=== PATIENT | female | born 1945 | race Caucasian/White ===

== ENCOUNTER 2017-10-31 16:54 | Inpatient (IN) | payer MEDICARE ==
[2017-10-31 16:54] VITALS: BMI 23.0
[2017-10-31 18:39] LABS: ALB/GLOB RATIO 1.3 (1.0-2.1); BILIRUBIN,TOTAL 0.4 mg/dL (0.2-1.3); CALCIUM 8.7 mg/dl (8.6-10.4); POTASSIUM 4.1 mmol/L (3.6-5.2)
[2017-10-31 18:50] LABS: TROPONIN I 0.019 ng/mL (0.00-0.120)
[2017-10-31 19:27] LABS: BASO % 0.6 % (0.0-2.0); EOS # 0.1 K/uL (0.0-0.7); EOS % 2.3 % (0.0-4.0); HEMATOCRIT 30.4 % (34.0-47.0); LYMPH # 1.7 K/uL (1.0-4.3); LYMPH % 29.9 % (20.0-40.0); MEAN CELL VOLUME 94.1 fL (81.0-99.0); MEAN CORPUSCULAR HEMOGLOBIN 32.6 pg (27.0-31.0); MEAN CORPUSCULAR HGB CONC 34.6 g/dL (33.0-37.0); MONO # 0.4 K/uL (0.0-0.8); MONO % 6.8 % (0.0-10.0); NRBC % 0.1 % (0.0-2.0); RED CELL DISTRIBUTION WIDTH 13.3 % (11.5-14.5); WHITE BLOOD COUNT 5.7 K/uL (4.8-10.8)
--- NOTE | 2017-10-31 19:39 | CT ---
EXAM: CT Head Without Intravenous Contrast CLINICAL HISTORY: 72 years old, female; Injury or trauma; Fall; Initial encounter; Blunt trauma (contusions or hematomas); Consciousness not specified; Additional info: R/O ich TECHNIQUE: Axial computed tomography images of the head/brain without intravenous contrast. All CT scans at this facility use one or more dose reduction techniques, viz.: automated exposure control; ma/kV adjustment per patient size (including targeted exams where dose is matched to indication; i.e. head); or iterative reconstruction technique. Coronal and sagittal reformatted images were created and reviewed. COMPARISON: No relevant prior studies available. FINDINGS: Brain: [id number] atrophy. No intracranial hemorrhage. No mass. Few scattered foci of decreased attenuation within periventricular/subcortical white matter. Chronic lacunar infarct within LEFT basal ganglia. No edema. Ventricles: No hydrocephalus. Bones/joints: No acute fracture. Soft tissues: Minimal scalp swelling. Vasculature: Atherosclerotic disease of intracranial arteries. Sinuses: Scattered minimal mucosal thickening. Mastoid air cells: No mastoid effusion. Orbits: Unremarkable as visualized. IMPRESSION: 1. No intracranial hemorrhage. 2. Nonspecific white matter changes. 3. Incidental/non-acute findings are described above.
--- NOTE | 2017-10-31 21:19 | C.PDOC ---
History Of Present Illness 72 year old female presents to the ED c/o falling and hitting her head " hard" today, she states feeling dizzy and lightheaded before falling. Patient reports she has had multiple falls the past 6-8 weeks. While at the ED patient is eating normally, with no physical complaints. Patient reports having a stress test done at Dr. Vázquez office but states he does not know the results.Patient denies dysuria, hematuria, bloody stool, cough, abdominal pain, diarrhea. - HPI Chief Complaint (Nursing): Trauma History Per: Patient History/Exam Limitations: no limitations Onset/Duration Of Symptoms: Days Injury Occurred (Timing): Just Before Arrival Severity: None Associated Symptoms: Dizziness, Dazed Recent travel outside of the [place]: No Additional History Per: Patient - Fall Fall:Prior To Injury: [place] Lightheaded Past Medical History Reviewed: Historical Data, Nursing Documentation, Vital Signs Vital Signs: Last Vital Signs Temp 98.0 F 10/31/17 21:49 Pulse 82 10/31/17 21:49 Resp 20 10/31/17 21:49 BP 130/64 10/31/17 21:49 Pulse Ox 99 10/31/17 21:49 - Medical History PMH: Anemia, Diabetes, HTN, Hypercholesterolemia Surgical History: Pacemaker - [facility] Procedures CENTRAL VENOUS CATHETER PLACEMENT WITH GUIDANCE (05/10/13) CLOSED ENDOSCOPIC BIOPSY OF LARGE INTESTINE (06/09/13) FLUOROSCOPY OF LEFT HEART USING LOW OSMOLAR CONTRAST (09/26/15) FLUOROSCOPY OF SINGLE CORONARY ARTERY USING L OSM CONTRAST (09/26/15) INSERT INTERCOSTAL CATH (07/01/13) LAPAROSCOP LYSIS-PERITONEAL ADHES (06/09/13) MEASURE OF CARDIAC SAMPL & PRESSURE, L HEART, PERC APPROACH (09/26/15) OTHER ENDOSCOPY OF SM INTEST (06/09/13) PACKED CELL TRANSFUSION (07/01/13) PERCUTANEOUS ABDOMINAL DRAINAGE (06/09/13) THORACENTESIS (07/01/13) VENOUS CATHETERIZATION NEC (07/01/13) Family History: States: No Known Family Hx - Social History Hx Tobacco Use: No Hx Alcohol Use: No Hx Substance Use: No - Immunization History Hx Influenza Vaccination: Yes Hx Pneumococcal Vaccination: Yes Review Of Systems Constitutional: Negative for: Fever, Chills Cardiovascular: Negative for: Chest Pain, Palpitations Respiratory: Negative for: Cough, Shortness of Breath Gastrointestinal: Negative for: Nausea, Vomiting, Abdominal Pain Skin: Negative for: Rash Neurological: Positive for: Dizziness. Negative for: Weakness, Numbness Physical Exam - Physical Exam Appears: Non-toxic, No Acute Distress Skin: Normal Color, Warm, Dry Head: Atraumatic, Normacephalic Eye(s): bilateral: Normal Inspection Ear(s): Bilateral: Normal Nose: No Discharge, No Deformity Oral Mucosa: Moist Neck: Normal ROM, Supple Chest: Symmetrical Cardiovascular: Rhythm Regular, No Murmur Respiratory: Normal Breath Sounds, No Rales, No Rhonchi, No Wheezing Gastrointestinal/Abdominal: Soft, No Tenderness, No Guarding, No Rebound Back: No CVA Tenderness Extremity: Normal ROM, No Pedal Edema, No Deformity, No Swelling Neurological/Psych: Oriented x3, Normal Speech, Normal Cognition Gait: Steady ED Course And Treatment - Laboratory Results Result Diagrams: 10/31/17 18:24 10/31/17 18:24 ECG: Interpreted By Me, Viewed By Me ECG Rhythm: V Paced (atrial sensed) Rate From EC O2 Sat by Pulse Oximetry: 99 (On RA) Pulse Ox Interpretation: Normal - Radiology CXR: Interpreted by Me, Viewed By Me - CT Scan/US Head CT Other Rad Studies (CT/US): Interpreted By Me, Read By Radiologist, Radiology Report Reviewed CT/US Interpretation: IMPRESSION: 1. No intracranial hemorrhage. 2. Nonspecific white matter changes. 3. Incidental/non-acute findings are described above. Medical Decision Making Medical Decision Making: Plan: * EKG ordered * CT head ordered * Blood work ordered * UA ordered Spoke with Dr. Vivek Verdugo, and pt will be admitted to telemetry. Disposition - Disposition Disposition: HOSPITALIZED Disposition Time: 19:30 Condition: STABLE - Clinical Impression Clinical Impression: Near syncope - Scribe Statement The provider has reviewed the documentation as recorded by the Scribe Rodger Tello All medical record entries made by the Scribe were at my direction and personally dictated by me. I have reviewed the chart and agree that the record accurately reflects my personal performance of the history, physical exam, medical decision making, and the department course for this patient. I have also personally directed, reviewed, and agree with the discharge instructions and disposition.
[2017-11-01] MEDS ORDERED: Pneumococcal 23-Valent Vaccine IM ONE (01:23)
[2017-11-01 02:42] LABS: TROPONIN I 0.019 ng/mL (0.00-0.120)
[2017-11-01 07:05] LABS: RBC URINE < 1 /hpf (0-3); URINE BILIRUBIN NEGATIVE (NEGATIVE); URINE BLOOD NEGATIVE (NEGATIVE); URINE COLOR Yellow (YELLOW); URINE GLUCOSE (UA) 3+ mg/dL (Normal); URINE KETONE NEGATIVE (NEGATIVE); URINE LEUKOCYTE ESTERASE NEG Leu/uL (Negative); URINE PROTEIN NEGATIVE (NEGATIVE); WBC URINE 1 /hpf (0-5)
--- NOTE | 2017-11-01 08:56 | RAD ---
HISTORY: r/o infiltrate COMPARISON: Chest x-ray performed 09/25/15 TECHNIQUE: Chest, one view. FINDINGS: Examination limited by habitus and hypoinflation. LUNGS: Mild biapical pleural thickening. No focal consolidation. Please note that chest x-ray has limited sensitivity for the detection of pulmonary masses. PLEURA: No significant pleural effusion identified. No definite pneumothorax . CARDIOVASCULAR: Dual lead left-sided pacemaker. Heart size appears within normal limits. Atherosclerotic calcifications of the aorta. OSSEOUS STRUCTURES: Osseous demineralization. Degenerative changes. VISUALIZED UPPER ABDOMEN: Unremarkable. OTHER FINDINGS: None. IMPRESSION: No acute findings. See above
[2017-11-01] MEDS: Enoxaparin 40 mg Syringe SC SCH (09:34)
[2017-11-01 11:44] LABS: TROPONIN I 0.013 ng/mL (0.00-0.120)
--- NOTE | 2017-11-01 12:47 | CT ---
PROCEDURE: CT HEAD WITHOUT CONTRAST. HISTORY: Syncope/ mulltiple falls COMPARISON: None available. TECHNIQUE: Axial computed tomography images were obtained through the head/brain without intravenous contrast. Radiation dose: Total exam DLP = 992.27 mGy-cm. This CT exam was performed using one or more of the following dose reduction techniques: Automated exposure control, adjustment of the mA and/or kV according to patient size, and/or use of iterative reconstruction technique. FINDINGS: HEMORRHAGE: No intracranial hemorrhage. BRAIN: The mckeon-white matter differentiation is well preserved. There is no mass effect or definitive edema pattern appreciate including the cortex. There is expansion of the ventriculosulcal and cisternal spaces however in a pattern most compatible with diffuse cerebral atrophy. No suspicious extra-axial fluid collection is identified in the midline brain anatomy appears grossly nonfocal as imaged. A few chronic lacunes are again seen at the left basal ganglia and likely at the left thalamus as well. No suspicious interval findings are appreciated in the interval. VENTRICLES: Unremarkable. No hydrocephalus. CALVARIUM: Unremarkable. PARANASAL SINUSES: Unremarkable as visualized. No significant inflammatory changes. MASTOID AIR CELLS: Unremarkable as visualized. No inflammatory changes. OTHER FINDINGS: None. IMPRESSION: Age related neuro degenerative changes are identified without acute intracranial findings as discussed above. Chronic lacunes left basal ganglia and likely left thalamus. Follow up CT or MRI are available if clinically warranted.
--- NOTE | 2017-11-01 13:02 | CT ---
PROCEDURE: CT Lumbar Spine without contrast HISTORY: Syncope/ multiple falls COMPARISON: None. TECHNIQUE: Axial computed tomography images were obtained of the lumbar spine without the use of intravenous contrast. Coronal and sagittal reformatted images were created and reviewed. Radiation dose: Total exam DLP = 428.67 mGy-cm. This CT exam was performed using one or more of the following dose reduction techniques: Automated exposure control, adjustment of the mA and/or kV according to patient size, and/or use of iterative reconstruction technique. FINDINGS: VERTEBRAE: The lumbar lordotic curvature is entered the by a minimal grade [address] 12/01/2000 for T12 is posterior to L1 minimally in the same appearance is seen with L1 relative to to L2. This appears to be on a facet joint degenerative arthropathy basis as no spondylolysis is encountered in this examination. Diffuse osteopenia suggests osteoporosis. No destructive bony lesion is encountered. Marked disc desiccation and vacuum disc changes are appreciated diffusely with vacuum disc changes also affecting the facet joint is at the left L3-4 level and right L4-5 level. Prevertebral paraspinal soft is remarkable only for vascular calcifications. DISCS/SPINAL CANAL/NEURAL FORAMINA: L1-2: Lower recess stenosis symmetric, caused by facet arthropathy combining with disc osteophyte complex. Moderate bilateral neural foraminal stenoses are encountered. Lesser lateral recess stenosis is seen at T12-L1 symmetrically by the same mechanism. L2-3: A degenerative central canal stenosis appears mild caused by facet arthropathy combined with a disc osteophyte complex with moderate bilateral neural foraminal stenosis resulting as well. L3-4: Nearly identical to L2-3, central stenosis caused by combination of gross facet arthropathy and disc osteophyte complex with moderate bilateral neural foraminal stenosis also noted. L4-5: A severe degenerative central stenosis caused by gross facet arthropathy and at large disc osteophyte complex. Severe bilateral neuroforaminal stenosis is also noted here. L5-S1: Moderate central stenosis caused by a large disc osteophyte complex and prominent facet arthropathy. Moderate to severe bilateral foraminal stenosis also noted. OTHER FINDINGS: None. IMPRESSION: Multilevel spinal stenosis appears degenerative seen worst at L4-5 where severe central stenosis results from disc osteophyte changes combined with gross facet arthropathy. Severe bilateral neural foraminal stenosis also seen at this level bilaterally. Similar but lesser stenosis is seen by similar mechanism at L2-3 through L3-4 and L5-S1. Further care tissue provided by MRI if clinically warranted. Minimal grade 1 degenerative spondylolistheses T12-L1 and L1-2.
--- NOTE | 2017-11-01 17:13 | CP.PCM.HP ---
History of Present Illness - History of Present Illness History of Present Illness: 72-year-old female with PMHanemia, DM, HTN and hypercholesterolemia presents to the ER after a fall. Patient fell down and hit her head very hard today. C/Odizziness and lightheadedness just before falling. Patient also admits that she has multiple episodes of falling the last 6-8 weeks. No C/Ovomiting, fever, cough, tinnitus, ringing in the ears, weakness of any extremities, loss of consciousness, blurring of vision. Present on Admission - Present on Admission Any Indicators Present on Admission: No Past Patient History - Infectious Disease Hx of Infectious Diseases: None - Past Medical History & Family History Past Medical History?: Yes - Past Social History Smoking Status: Never Smoked - CARDIAC Hx Hypercholesterolemia: Yes Hx Hypertension: Yes Hx Pacemaker: Yes - PULMONARY Hx Respiratory Disorders: No - NEUROLOGICAL Hx Neurological Disorder: No - HEENT Hx HEENT Problems: No - RENAL Hx Chronic Kidney Disease: No - ENDOCRINE/METABOLIC Hx Endocrine Disorders: Yes Hx Diabetes Mellitus Type 2: Yes - HEMATOLOGICAL/ONCOLOGICAL Hx Anemia: Yes - INTEGUMENTARY Hx Dermatological Problems: No - MUSCULOSKELETAL/RHEUMATOLOGICAL Hx Musculoskeletal Disorders: No Hx Falls: Yes - GASTROINTESTINAL Hx Gastrointestinal Disorders: No - GENITOURINARY/GYNECOLOGICAL Hx Genitourinary Disorders: No - PSYCHIATRIC Hx Substance Use: No - SURGICAL HISTORY Hx Surgeries: Yes Hx Cardiac Catheterization: Yes (4 STENTS PER PATIENT) - ANESTHESIA Hx Anesthesia: Yes Hx Anesthesia Reactions: No Hx Malignant Hyperthermia: No Meds Allergies/Adverse Reactions: Allergies Allergy/AdvReac Type Severity Reaction Status Date / Time No Known Allergies Allergy Verified 10/31/17 17:32 Physical Exam - Constitutional Appears: Well - Head Exam Head Exam: ATRAUMATIC, NORMAL INSPECTION, NORMOCEPHALIC - Eye Exam Eye Exam: EOMI, Normal appearance, PERRL Pupil Exam: NORMAL ACCOMODATION, PERRL - ENT Exam ENT Exam: Mucous Membranes Moist, Normal Exam - Neck Exam Neck exam: Positive for: Normal Inspection - Respiratory Exam Respiratory Exam: Decreased Breath Sounds - Cardiovascular Exam Cardiovascular Exam: REGULAR RHYTHM, +S1, +S2 - GI/Abdominal Exam GI & Abdominal Exam: Diminished Bowel Sounds, Soft - Rectal Exam Rectal Exam: Deferred Results - Vital Signs Recent Vital Signs: Last Vital Signs Temp 98.4 F 11/01/17 15:28 Pulse 87 11/01/17 15:28 Resp 20 11/01/17 15:28 BP 144/78 11/01/17 15:28 Pulse Ox 98 11/01/17 15:28 - Labs Result Diagrams: 11/02/17 11:34 11/02/17 11:34 Labs: Laboratory Results - last 24 hr 10/31/17 10/31/17 10/31/17 17:56 18:24 18:24 WBC 5.7 RBC 3.23 L Hgb 10.5 L Hct 30.4 L MCV 94.1 D MCH 32.6 H MCHC 34.6 RDW 13.3 Plt Count 245 MPV 8.0 Neut % (Auto) 60.4 Lymph % (Auto) 29.9 Thayer % (Auto) 6.8 Eos % (Auto) 2.3 Baso % (Auto) 0.6 Neut # 3.4 Lymph # 1.7 Thayer # 0.4 Eos # 0.1 Baso # 0.0 PT 11.2 INR 1.0 APTT 32 Sodium Potassium Chloride Carbon Dioxide Anion Gap BUN Creatinine Est GFR ( Amer) Est GFR (Non-Af Amer) POC Glucose (mg/dL) Random Glucose Calcium Total Bilirubin AST ALT Alkaline Phosphatase Total Creatine Kinase CK-MB (Mass) Troponin I Total Protein Albumin Globulin Albumin/Globulin Ratio Urine Color Yellow Urine Clarity Clear Urine pH 5.0 Ur Specific Bandy 1.020 Urine Protein Negative Urine Glucose (UA) 3+ H Urine Ketones Negative Urine Blood Negative Urine Nitrate Negative Urine Bilirubin Negative Urine Urobilinogen 2.0 H Ur Leukocyte Esterase Neg Urine WBC (Auto) 1 Urine RBC (Auto) < 1 Ur Squamous Epith Cells 1 10/31/17 11/01/17 11/01/17 18:24 02:09 05:59 WBC RBC Hgb Hct MCV MCH MCHC RDW Plt Count MPV Neut % (Auto) Lymph % (Auto) Thayer % (Auto) Eos % (Auto) Baso % (Auto) Neut # Lymph # Thayer # Eos # Baso # PT INR APTT Sodium 138 Potassium 4.1 Chloride 105 Carbon Dioxide 23 Anion Gap 14 BUN 24 H Creatinine 1.3 H Est GFR ( Amer) 48 Est GFR (Non-Af Amer) 40 POC Glucose (mg/dL) 226 H Random Glucose 298 H Calcium 8.7 Total Bilirubin 0.4 AST 20 ALT 37 Alkaline Phosphatase 125 Total Creatine Kinase 68 CK-MB (Mass) 0.81 Troponin I 0.0190 0.0190 Total Protein 7.0 Albumin 4.0 Globulin 3.0 Albumin/Globulin Ratio 1.3 Urine Color Urine Clarity Urine pH Ur Specific [place] Urine Protein Urine Glucose (UA) Urine Ketones Urine Blood Urine Nitrate Urine Bilirubin Urine Urobilinogen Ur Leukocyte Esterase Urine WBC (Auto) Urine RBC (Auto) Ur Squamous Epith Cells 11/01/17 11/01/17 11:01 11:11 WBC RBC Hgb Hct MCV MCH MCHC RDW Plt Count MPV Neut % (Auto) Lymph % (Auto) Thayer % (Auto) Eos % (Auto) Baso % (Auto) Neut # Lymph # Thayer # Eos # Baso # PT INR APTT Sodium Potassium Chloride Carbon Dioxide Anion Gap BUN Creatinine Est GFR ( Amer) Est GFR (Non-Af Amer) POC Glucose (mg/dL) 331 H Random Glucose Calcium Total Bilirubin AST ALT Alkaline Phosphatase Total Creatine Kinase 87 CK-MB (Mass) 0.65 Troponin I 0.0130 Total Protein Albumin Globulin Albumin/Globulin Ratio Urine Color Urine Clarity Urine pH Ur Specific Bandy Urine Protein Urine Glucose (UA) Urine Ketones Urine Blood Urine Nitrate Urine Bilirubin Urine Urobilinogen Ur Leukocyte Esterase Urine WBC (Auto) Urine RBC (Auto) Ur Squamous Epith Cells
--- NOTE | 2017-11-01 21:04 | CP.PCM.CON ---
History of Present Illness - History of Present Illness History of Present Illness: 72 F with hx of CAD s/p Multi vessel PCI, DM, HTN admitted for frequent falls Recent stress test normal Check ECHO and Carotids Neuro eval 72 year old female presents to the ED c/o falling and hitting her head " hard" today, she states feeling dizzy and lightheaded before falling. Patient reports she has had multiple falls the past 6-8 weeks. Patient denies dysuria, hematuria , bloody stool, cough, abdominal pain, diarrhea. - HPI Chief Complaint (Nursing): Trauma History Per: Patient History/Exam Limitations: no limitations Onset/Duration Of Symptoms: Days Injury Occurred (Timing): Just Before Arrival Severity: None Associated Symptoms: Dizziness, Dazed Recent travel outside of the [place]: No Additional History Per: Patient - Fall Fall:Prior To Injury: [place] Lightheaded - Medical History PMH: Anemia, Diabetes, HTN, Hypercholesterolemia, CAD and Surgical History: Pacemaker - [facility] Procedures CENTRAL VENOUS CATHETER PLACEMENT WITH GUIDANCE (05/10/13) CLOSED ENDOSCOPIC BIOPSY OF LARGE INTESTINE (06/09/13) FLUOROSCOPY OF LEFT HEART USING LOW OSMOLAR CONTRAST (09/26/15) FLUOROSCOPY OF SINGLE CORONARY ARTERY USING L OSM CONTRAST (09/26/15) INSERT INTERCOSTAL CATH (07/01/13) LAPAROSCOP LYSIS-PERITONEAL ADHES (06/09/13) MEASURE OF CARDIAC SAMPL & PRESSURE, L HEART, PERC APPROACH (09/26/15) OTHER ENDOSCOPY OF SM INTEST (06/09/13) PACKED CELL TRANSFUSION (07/01/13) PERCUTANEOUS ABDOMINAL DRAINAGE (06/09/13) THORACENTESIS (07/01/13) VENOUS CATHETERIZATION NEC (07/01/13) Family History: States: No Known Family Hx - Social History Hx Tobacco Use: No Hx Alcohol Use: No Hx Substance Use: No - Immunization History Hx Influenza Vaccination: Yes Hx Pneumococcal Vaccination: Yes Review Of Systems Constitutional: Negative for: Fever, Chills Cardiovascular: Negative for: Chest Pain, Palpitations Respiratory: Negative for: Cough, Shortness of Breath Gastrointestinal: Negative for: Nausea, Vomiting, Abdominal Pain Skin: Negative for: Rash Neurological: Positive for: Dizziness. Negative for: Weakness, Numbness Physical Exam - Physical Exam Appears: Non-toxic, No Acute Distress Skin: Normal Color, Warm, Dry Head: Atraumatic, Normacephalic Eye(s): bilateral: Normal Inspection Ear(s): Bilateral: Normal Nose: No Discharge, No Deformity Oral Mucosa: Moist Neck: Normal ROM, Supple Chest: Symmetrical Cardiovascular: Rhythm Regular, No Murmur Respiratory: Normal Breath Sounds, No Rales, No Rhonchi, No Wheezing Gastrointestinal/Abdominal: Soft, No Tenderness, No Guarding, No Rebound Back: No CVA Tenderness Extremity: Normal ROM, No Pedal Edema, No Deformity, No Swelling Neurological/Psych: Oriented x3, Normal Speech, Normal Cognition Gait: Steady Past Patient History - Infectious Disease Hx of Infectious Diseases: None - Past Medical History & Family History Past Medical History?: Yes - Past Social History Smoking Status: Never Smoked - CARDIAC Hx Hypercholesterolemia: Yes Hx Hypertension: Yes Hx Pacemaker: Yes - PULMONARY Hx Respiratory Disorders: No - NEUROLOGICAL Hx Neurological Disorder: No - HEENT Hx HEENT Problems: No - RENAL Hx Chronic Kidney Disease: No - ENDOCRINE/METABOLIC Hx Endocrine Disorders: Yes Hx Diabetes Mellitus Type 2: Yes - HEMATOLOGICAL/ONCOLOGICAL Hx Anemia: Yes - INTEGUMENTARY Hx Dermatological Problems: No - MUSCULOSKELETAL/RHEUMATOLOGICAL Hx Musculoskeletal Disorders: No Hx Falls: Yes - GASTROINTESTINAL Hx Gastrointestinal Disorders: No - GENITOURINARY/GYNECOLOGICAL Hx Genitourinary Disorders: No - PSYCHIATRIC Hx Substance Use: No - SURGICAL HISTORY Hx Surgeries: Yes Hx Cardiac Catheterization: Yes (4 STENTS PER PATIENT) - ANESTHESIA Hx Anesthesia: Yes Hx Anesthesia Reactions: No Hx Malignant Hyperthermia: No Meds Home Medications: Home Medication List Medication Instructions Recorded Confirmed Type Insulin Human Regular [Novolin R] 0 unit SC ACHS unit 11/06/17 Rx Lisinopril [Zestril] 2.5 mg PO DAILY tab 11/06/17 Rx SITagliptin [Januvia] 25 mg PO DAILY tab 11/06/17 Rx Allergies/Adverse Reactions: Allergies Allergy/AdvReac Type Severity Reaction Status Date / Time No Known Allergies Allergy Verified 10/31/17 17:32 - Medications Medications: Current Medications Aspirin (Ecotrin) 81 mg PO DAILY [facility] Last Admin: 11/01/17 09:34 Dose: 81 mg Enoxaparin Sodium (Lovenox) 40 mg SC DAILY [facility] Last Admin: 11/01/17 09:34 Dose: 40 mg Gabapentin (Neurontin) 100 mg PO TID [facility] Last Admin: 11/01/17 17:31 Dose: 100 mg Glimepiride (Amaryl) 4 mg PO DAILY [facility] Last Admin: 11/01/17 09:34 Dose: 4 mg Pneumococcal Polyvalent Vaccine (Pneumovax 23 Vaccine) 0.5 ml IM .ONCE ONE Stop: 11/02/17 10:01 Results - Vital Signs Recent Vital Signs: Last Vital Signs Temp 98.4 F 11/01/17 15:28 Pulse 87 11/01/17 15:28 Resp 20 11/01/17 15:28 BP 144/78 11/01/17 15:28 Pulse Ox 98 11/01/17 15:28 - Labs Result Diagrams: 11/06/17 06:16 11/06/17 06:16 Labs: Laboratory Results - last 24 hr 10/31/17 11/01/17 11/01/17 17:56 02:09 05:59 POC Glucose (mg/dL) 226 H Total Creatine Kinase 68 CK-MB (Mass) 0.81 Troponin I 0.0190 Urine Color Yellow Urine Clarity Clear Urine pH 5.0 Ur Specific [place] 1.020 Urine Protein Negative Urine Glucose (UA) 3+ H Urine Ketones Negative Urine Blood Negative Urine Nitrate Negative Urine Bilirubin Negative Urine Urobilinogen 2.0 H Ur Leukocyte Esterase Neg Urine WBC (Auto) 1 Urine RBC (Auto) < 1 Ur Squamous Epith Cells 1 11/01/17 11/01/17 11/01/17 11:01 11:11 20:12 POC Glucose (mg/dL) 331 H Total Creatine Kinase 87 76 CK-MB (Mass) 0.65 0.54 Troponin I 0.0130 < 0.0120 Urine Color Urine Clarity Urine pH Ur Specific [place] Urine Protein Urine Glucose (UA) Urine Ketones Urine Blood Urine Nitrate Urine Bilirubin Urine Urobilinogen Ur Leukocyte Esterase Urine WBC (Auto) Urine RBC (Auto) Ur Squamous Epith Cells Assessment & Plan - Assessment and Plan (Free Text) Assessment: (1) Falls Current Visit: Yes Status: Acute Comment: SURJIT x 2 negative Check ECHO/carotids and Tilt table test (2) CAD (coronary artery disease) Current Visit: Yes Status: Acute H/O Multi vessel PCI Brilinta 90 bid B Hiram and LESTER on board s/p Multi vessel PCI (3) Pacemaker Current Visit: Yes Status: Acute Comment: palced in 2012 - last checked 07/2015 (4) HTN (hypertension) Current Visit: Yes Status: Acute Comment: Resume home medications: Enalapril 5mg po daily Carvedilol 3.125mg po bid (5) Diabetes Current Visit: Yes Status: Acute Comment: Glimepride 4mg po daily RISS with accuchecks Consistent Carb diet (6) Chronic anemia Current Visit: Yes Status: Acute Comment: Resume Iron supplement no active signs of bleeding, pt hemodynamically stable on admission (7) Prophylactic measure Current Visit: Yes Status: Acute Comment: GI: Pepcid 20mg po bid DVT: Heparin 5000u sc q8, SCDs
--- NOTE | 2017-11-02 00:51 | CON ---
DATE: NEUROLOGY CONSULTATION REFERRING PHYSICIAN: Dr. Delfino Verdugo. REASON FOR CONSULTATION: Frequent falls. HISTORY OF PRESENT ILLNESS: The patient is a 72-year-old right-handed lady with past medical history of bilateral cataract surgery, diabetes mellitus, arthritis. Patient was admitted because of frequent falls. Patient fell down and hit her forehead against a tree. Patient does not know how she is falling. She just sees herself on the floor. Patient denies any preceding chest pain, palpitation, or shortness of breath, but lately she was complaining of chest pain and was seen by Dr. Vázquez, and had a stress test recently. Patient denies any loss of consciousness, seizures. No urine or bowel incontinence after falling, although patient is complaining of arthritis and knee pain. Patient does not know if her legs give away or not, she is not sure. PAST MEDICAL HISTORY: As mentioned above. SOCIAL HISTORY: Nonsmoker, no ethanol or drug abuser. ALLERGIES: NO KNOWN ALLERGIC REACTION TO MEDICATIONS. FAMILY HISTORY: Noncontributory. MEDICATIONS: Glimepiride, aspirin, enoxaparin, gabapentin. REVIEW OF SYSTEMS: As per H and P. PHYSICAL EXAMINATION: VITAL SIGNS: Blood pressure 104/67, pulse 99, respirations 18. MENTAL STATE: The patient is alert, awake, oriented x3. Normal naming, repetition and comprehension. CRANIAL NERVES: Pupils are sluggishly reactive to light and accommodation, status post cataract surgery. No facial asymmetry. Decreased hearing on the right side with tinnitus. No field defect. NECK: Supple. MOTOR: Normal tone in upper extremities. No pronator drift. 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 Lower extremities: Bilateral hip flexion 4+ to 5/5. Knee flexion, extension and ankle 5 to 5-/5. Deep tendon reflexes are 1 to 2 in upper and lower extremities. Plantar flexion both sides. No clonus. Sensory; pinprick, light touch intact. Coordination; [id number] intact. IMAGING: CAT scan of the lumbar spine consistent with multiple level spinal stenosis with degenerative disc disease, worse at L4-5 where there is severe central canal stenosis secondary to osteophyte with facet joint hypertrophy and atrophy; severe bilateral neural foraminal narrowing at L4-5 and less at L2-3 and L3-4 and L5-S1. Unfortunately, patient cannot do MRI because of the spinal stenosis. CAT scan of the brain consistent with periventricular white matter disease, atrophy consistent with the age. No acute findings of traumatic subdural hematoma or subarachnoid hemorrhage. There is a chronic lacunar infarct in the left basal ganglia and left thalamus. IMPRESSION: Frequent falls, most likely secondary to lumbar spinal stenosis. Patient will need a neurosurgical evaluation. The patient's fall is most likely from the spinal stenosis rather than central from the brain, and more severe is at L4-5. Patient probably will need intervention. Patient's falls started 2 or 3 months ago and she has been falling at least 4 or 5 times. A neurosurgical consultation is strongly recommended and patient may be a candidate for a myelogram. Patient will not be able to go for MRI of the lumbar spine. That is up to a neurosurgeon to make a decision. Thank you for the consultation. Dr. Hayes will follow up the patient tomorrow. Carlton Alav MD
[2017-11-02] MEDS: Enoxaparin 40 mg Syringe SC SCH (09:38)
[2017-11-02] MEDS ORDERED: Pneumococcal 23-Valent Vaccine IM ONE (10:00)
[2017-11-02] MEDS ORDERED: Influenza Vaccine 60 mcg/0.5 mL SYR (4YR UP) IM ONE ×2 (10:00→13:45)
[2017-11-02 11:48] LABS: BASO % 0.9 % (0.0-2.0); EOS # 0.1 K/uL (0.0-0.7); EOS % 2.5 % (0.0-4.0); HEMATOCRIT 30.2 % (34.0-47.0); LYMPH # 1.6 K/uL (1.0-4.3); LYMPH % 32.9 % (20.0-40.0); MEAN CELL VOLUME 94.9 fL (81.0-99.0); MEAN CORPUSCULAR HEMOGLOBIN 32.9 pg (27.0-31.0); MEAN CORPUSCULAR HGB CONC 34.7 g/dL (33.0-37.0); MEAN PLATELET VOLUME 7.8 fL (7.2-11.7); MONO # 0.3 K/uL (0.0-0.8); MONO % 6.9 % (0.0-10.0); RED CELL DISTRIBUTION WIDTH 13.6 % (11.5-14.5); WHITE BLOOD COUNT 4.9 K/uL (4.8-10.8)
[2017-11-02 12:02] LABS: BLOOD UREA NITROGEN 16 mg/dL (7-17); CALCIUM 8.4 mg/dl (8.6-10.4); CARBON DIOXIDE 27 mmol/L (22-30); CHLORIDE 102 mmol/L (98-107); GFR AFRICAN-AMERICAN > 60; GLUCOSE,RANDOM 322 mg/dL (65-105); POTASSIUM 4.4 mmol/L (3.6-5.2); SODIUM 135 mmol/L (132-148)
--- NOTE | 2017-11-02 13:08 | VASCLAB ---
PROCEDURE: HISTORY: Syncope COMPARISON: Last carotid duplex exam 2009, normal. TECHNIQUE: Grayscale and duplex Doppler evaluation of the cervical carotid and vertebral arteries were performed. The common carotid, carotid bifurcations and cervical Internal Carotid Artery (ICA) and proximal External Carotid Artery (ECA) were evaluated. The vertebral arteries were evaluated for gross patency and flow direction. Report prepared by SALMA Eddy FINDINGS: RIGHT CAROTID ARTERIES: 1. Common Carotid Artery: No significant focal plaque formation of the right common carotid artery. Maximum Peak Systolic velocity: 91 cm/sec: End-diastolic velocity 17 cm/sec. 2. Carotid Bifurcation: Minimal calcific plaque formation. Maximum Peak Systolic velocity: 67 cm/sec: End-diastolic velocity 16 cm/sec. 3. Internal Carotid Artery: Plaque description: Calcific 3.1. Proximal Segment: Peak systolic velocity 61 cm/sec: End-diastolic velocity 19 cm/sec - % stenosis 0-15% 3.2. Middle Segment: Peak systolic velocity 66 cm/sec: End-diastolic velocity 22 cm/sec - % stenosis 0-15% 3.3. Distal Segment: Peak systolic velocity 53 cm/sec: End-diastolic velocity 18 cm/sec - % stenosis 0-15% 4. External Carotid Artery: No significant focal plaque formation. Peak systolic velocity 59 cm/sec 5. ICA/CCA Ratio: 1.0 LEFT CAROTID ARTERIES: 1. Common Carotid Artery: No significant focal plaque formation of the left common carotid artery. Maximum Peak Systolic velocity: 104 cm/sec: End-diastolic velocity 22 cm/sec. 2. Carotid Bifurcation: Minimal calcific plaque formation. Maximum Peak Systolic velocity: 51 cm/sec: End-diastolic velocity 11 cm/sec. 3. Internal Carotid Artery: Plaque description: Calcific 3.1. Proximal Segment: Peak systolic velocity 66 cm/sec: End-diastolic velocity 23 cm/sec - % stenosis 0-15% 3.2. Middle Segment: Peak systolic velocity 68 cm/sec: End-diastolic velocity 23 cm/sec - % stenosis 0-15% 3.3. Distal Segment: Peak systolic velocity 53 cm/sec: End-diastolic velocity 15 cm/sec - % stenosis 0-15% 4. External Carotid Artery: No significant focal plaque formation. Peak systolic velocity 53 cm/sec 5. ICA/CCA Ratio: 1.1 VERTEBRAL ARTERIES: 1. Right Vertebral Artery: The right vertebral artery flow direction is antegrade. 2. Left Vertebral Artery: The left vertebral artery flow direction is antegrade. OTHER FINDINGS: 1. Right Brachial Blood pressure: 110 mmHg. 2. Left Brachial Blood pressure: 100 mmHg. IMPRESSION: RIGHT: Duplex scan does not suggest hemodynamically significant stenosis of the right extracranial carotid arteries. LEFT: Duplex scan does not suggest hemodynamically significant stenosis of the left extracranial carotid arteries.
--- NOTE | 2017-11-02 13:13 | PN ---
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 Patient was admitted with recurrent fall, at least once a week as per the patient, not associating with any warning sign or associating with bowel or bladder incontinence or bitten tongue. She denies any focal weakness of her arm and legs. She has been using the cane for many years. From a neurological point of view, patient should get good control of her diabetes mellitus and the physical therapy to improve her gait. I doubt patient needs surgery due to her lower back issues. Patient should be getting benefit with conservative management. Piyush Hayes MD
[2017-11-02] MEDS ORDERED: (Novolog) Insulin Aspart, Recombinant 100 u/ml 10 ml vial SC ONE (17:00)
--- NOTE | 2017-11-02 19:45 | CP.PCM.PN ---
Subjective - Date & Time of Evaluation Date of Evaluation: 11/02/17 Time of Evaluation: 14:00 - Subjective Subjective: clinically same Objective - Vital Signs/Intake and Output Vital Signs (last 24 hours): Temp Pulse Resp BP Pulse Ox 97.5 F L 93 H 20 122/78 100 11/02/17 15:06 11/02/17 16:00 11/02/17 15:06 11/02/17 15:06 11/02/17 15:06 Intake and Output: 11/02/17 11/03/17 18:59 06:59 Intake Total 300 Balance 300 - Medications Medications: Current Medications Aspirin (Ecotrin) 81 mg PO DAILY [facility] Last Admin: 11/02/17 09:38 Dose: 81 mg Enoxaparin Sodium (Lovenox) 40 mg SC DAILY [facility] Last Admin: 11/02/17 09:38 Dose: 40 mg Gabapentin (Neurontin) 100 mg PO TID [facility] Last Admin: 11/02/17 17:21 Dose: 100 mg Glimepiride (Amaryl) 4 mg PO DAILY [facility] Last Admin: 11/02/17 09:38 Dose: 4 mg Insulin Human Regular (Novolin R) 0 unit SC [facility] PRN Reason: Protocol - Labs Labs: 11/02/17 11:34 11/02/17 11:34 PT 11.2 SECONDS (9.7-12.2) 10/31/17 18:24 INR 1.0 10/31/17 18:24 APTT 32 SECONDS (21-34) 10/31/17 18:24
[2017-11-02] MEDS: (Novolin R) Insulin Human Regular 100 units/ml vial SC SCH (21:01)
--- NOTE | 2017-11-02 23:18 | CARD ---
APPROVED REPORT EKG Measurement Heart [id number] <Conclusion> Atrial-sensed ventricular-paced rhythm Abnormal ECG
--- NOTE | 2017-11-02 23:22 | CARD ---
APPROVED REPORT EKG Measurement Heart [id number] <Conclusion> Atrial-sensed ventricular-paced rhythm Abnormal ECG
--- NOTE | 2017-11-03 07:19 | CARD ---
APPROVED REPORT EXAM: Two-dimensional and M-mode echocardiogram with Doppler and color Doppler. Other Information Quality : GoodRhythm : INDICATION Syncope 2D DIMENSIONS IVSd1.0 (0.7-1.1cm)LVDd3.5 (3.9-5.9cm) PWd0.9 (0.7-1.1cm)LVDs2.4 (2.5-4.0cm) FS (%) 31.4 %LVEF (%)60.3 (>50%) M-Mode DIMENSIONS Left Atrium (MM)3.08 (2.5-4.0cm)Aortic Root2.94 (2.2-3.7cm) Aortic Cusp Exc.1.52 (1.5-2.0cm) Mitral Valve MV E Magrxwky51.9cm/sMV A Tnwvvztj079.2cm/sE/A ratio0.7 TDI E/Lateral E'0.0E/Medial E'0.0 Tricuspid Valve TR Peak Sscsihgt608sc/sTR Peak Gr.27peWmVKJP07nsYs LEFT VENTRICLE The left ventricle is normal size. There is normal left ventricular wall thickness. Left ventricle systolic function is normal. The Ejection Fraction is 60-65%. There is normal LV segmental wall motion. Tissue Doppler imaging reveals abnormal left ventricular diastolic dysfunction. RIGHT VENTRICLE The right ventricle is normal size. There is normal right ventricular wall thickness. The right ventricular systolic function is normal. ATRIA The left atrium size is normal. The right atrium size is normal. The interatrial septum is intact with no evidence for an atrial septal defect. AORTIC VALVE The aortic valve is normal in structure. No aortic regurgitation is present. There is no aortic valvular stenosis. MITRAL VALVE Mitral annular calcification is mild. There is no evidence of mitral valve prolapse. There is no mitral valve stenosis. Mitral regurgitation is mild. TRICUSPID VALVE The tricuspid valve is normal in structure. There is mild tricuspid regurgitation. Right ventricular systolic pressure is estimated at 30-40 mmHg. There is mild pulmonary hypertension. PULMONIC VALVE The pulmonic valve is not well visualized. There is no pulmonic valvular regurgitation. GREAT VESSELS The aortic root is normal in size. PERICARDIAL EFFUSION There is no significant pericardial effusion. <Conclusion> Left ventricle systolic function is normal. The Ejection Fraction is 60-65%. Diastolic dysfunction. No aortic regurgitation is present. Mitral regurgitation is mild. There is mild tricuspid regurgitation. There is mild pulmonary hypertension. There is no pulmonic valvular regurgitation.
--- NOTE | 2017-11-03 09:29 | CP.PCM.PN ---
Subjective - Date & Time of Evaluation Date of Evaluation: 11/03/17 Time of Evaluation: 07:00 - Subjective Subjective: Medicine Note- Dr. Verdugo's service Patient was seen and examined at bedside. Patient reports no acute complaints at this time. She states that she fell on Thursday because she was stepping out of a car and believed she misstepped. She states, however, that she has been falling a lot recently, averaging about one fall per week. She says she does not use her walker as often as she should, especially when in her house. Nursing reports no issues at this time. Patient states she has not had a bowel movement in about 5 days, but that is her baseline. Objective - Vital Signs/Intake and Output Vital Signs (last 24 hours): Temp Pulse Resp BP Pulse Ox 97.5 F L 95 H 20 120/76 96 11/03/17 08:26 11/03/17 08:26 11/03/17 08:26 11/03/17 08:26 11/03/17 08:26 Intake and Output: 11/03/17 11/03/17 06:59 18:59 Intake Total 400 Balance 400 - Medications Medications: Current Medications Aspirin (Ecotrin) 81 mg PO DAILY [facility] Last Admin: 11/02/17 09:38 Dose: 81 mg Enoxaparin Sodium (Lovenox) 40 mg SC DAILY [facility] Last Admin: 11/02/17 09:38 Dose: 40 mg Gabapentin (Neurontin) 100 mg PO TID [facility] Last Admin: 11/02/17 17:21 Dose: 100 mg Glimepiride (Amaryl) 4 mg PO DAILY [facility] Last Admin: 11/02/17 09:38 Dose: 4 mg Insulin Human Regular (Novolin R) 0 unit SC [facility] PRN Reason: Protocol Last Admin: 11/02/17 21:01 Dose: Not Given - Labs Labs: 11/02/17 11:34 11/02/17 11:34 PT 11.2 SECONDS (9.7-12.2) 10/31/17 18:24 INR 1.0 10/31/17 18:24 APTT 32 SECONDS (21-34) 10/31/17 18:24 - Constitutional Appears: Non-toxic, No Acute Distress - Head Exam Head Exam: ATRAUMATIC, NORMAL INSPECTION, NORMOCEPHALIC - Eye Exam Pupil Exam: NORMAL ACCOMODATION - ENT Exam ENT Exam: Mucous Membranes Moist - Respiratory Exam Respiratory Exam: Clear to Ausculation Bilateral, NORMAL BREATHING PATTERN. absent: Prolonged Expiratory Phase, Rales, Rhonchi, Wheezes - Cardiovascular Exam Cardiovascular Exam: REGULAR RHYTHM, +S1, +S2 - GI/Abdominal Exam GI & Abdominal Exam: Soft, Normal Bowel Sounds. absent: Tenderness, Diminished Bowel Sounds, Hernia, Hypoactive Bowel Sounds - Extremities Exam Extremities Exam: Normal Capillary Refill, Normal Inspection Additional comments: ecchymosis of right lateral thigh - Neurological Exam Neurological Exam: Alert, Awake, Oriented x3 - Psychiatric Exam Psychiatric exam: Normal Affect, Normal Mood - Skin Skin Exam: Dry, Intact, Normal Color, Warm Assessment and Plan - Assessment and Plan (Free Text) Assessment: Recurrent Falls Consult Cardio-Dr. Vázquez Consult Neuro- Dr. Hayes- recommends conservative management for now Echo- 11/01/17- LV function normal, EF 60-65%. Diastolic dysfunction. CT head- 10/31/17- No intracranial hemorrhage, nonspecific white matter changes. Chronic lacunar infarct within left basal ganglia CT Head- 11/01/17- Age related neuro degenerative changes are identified without acute intracranial findings as discussed above. Chronic lacunes left basal ganglia and likely left thalamus. CT Lumbar spine- Multilevel spinal stenosis , worst at L4-L5 where severe central stenosis results from disc osteophyte changes gcombiend with gross facet arthropathy. Minimal Grade 1 degenerative spondylolitheses T12-L1 and L1-2 Carotid Dopplers- negative Diabetes Continue Glimepiride 4mg PO Daily [facility] Asa 81mg PO Daily Prophylactic Measures Lovenox 40mg SC Daily Protonix 40mg PO Daily Physical therapy recommends JOSEFINA, will discuss with case management.
--- NOTE | 2017-11-03 09:48 | CP.PCM.PN ---
Subjective - Date & Time of Evaluation Date of Evaluation: 11/03/17 Time of Evaluation: 09:44 - Subjective Subjective: PROCEDURE NOTE Proc: Tilt Table Analysis Tester: Dr Hsieh Indic: Near syncope Impression: Appropriate BP and HR response to Tilt Table Test Patient experience atypical chest pain during the test Plan: Lexiscan stress test in the morning Objective - Vital Signs/Intake and Output Vital Signs (last 24 hours): Temp Pulse Resp BP Pulse Ox 97.5 F L 95 H 20 120/76 96 11/03/17 08:26 11/03/17 08:26 11/03/17 08:26 11/03/17 08:26 11/03/17 08:26 Intake and Output: 11/03/17 11/03/17 06:59 18:59 Intake Total 400 Balance 400 - Medications Medications: Current Medications Aspirin (Ecotrin) 81 mg PO DAILY [facility] Last Admin: 11/02/17 09:38 Dose: 81 mg Enoxaparin Sodium (Lovenox) 40 mg SC DAILY [facility] Last Admin: 11/02/17 09:38 Dose: 40 mg Gabapentin (Neurontin) 100 mg PO TID [facility] Last Admin: 11/02/17 17:21 Dose: 100 mg Glimepiride (Amaryl) 4 mg PO DAILY [facility] Last Admin: 11/02/17 09:38 Dose: 4 mg Insulin Human Regular (Novolin R) 0 unit SC [facility] PRN Reason: Protocol Last Admin: 11/02/17 21:01 Dose: Not Given Pantoprazole Sodium (Protonix Ec Tab) 40 mg PO DAILY [facility] - Labs Labs: 11/02/17 11:34 11/02/17 11:34 PT 11.2 SECONDS (9.7-12.2) 10/31/17 18:24 INR 1.0 10/31/17 18:24 APTT 32 SECONDS (21-34) 10/31/17 18:24
[2017-11-03] MEDS: Pantoprazole 40 mg EC Tab PO SCH (10:50)
[2017-11-03] MEDS: Enoxaparin 40 mg Syringe SC SCH (10:50)
[2017-11-03] MEDS: (Novolin R) Insulin Human Regular 100 units/ml vial SC SCH ×4 (11:10→21:37)
--- NOTE | 2017-11-03 17:50 | CP.PCM.PN ---
Subjective - Date & Time of Evaluation Date of Evaluation: 11/03/17 Time of Evaluation: 14:00 - Subjective Subjective: clinically same Objective - Vital Signs/Intake and Output Vital Signs (last 24 hours): Temp Pulse Resp BP Pulse Ox 97.8 F 91 H 18 115/72 99 11/03/17 15:16 11/03/17 15:16 11/03/17 15:16 11/03/17 15:16 11/03/17 15:16 Intake and Output: 11/03/17 11/03/17 06:59 18:59 Intake Total 400 200 Balance 400 200 - Medications Medications: Current Medications Aspirin (Ecotrin) 81 mg PO DAILY [facility] Last Admin: 11/03/17 10:50 Dose: 81 mg Enoxaparin Sodium (Lovenox) 40 mg SC DAILY [facility] Last Admin: 11/03/17 10:50 Dose: 40 mg Gabapentin (Neurontin) 100 mg PO TID [facility] Last Admin: 11/03/17 13:02 Dose: 100 mg Glimepiride (Amaryl) 4 mg PO DAILY [facility] Last Admin: 11/03/17 10:50 Dose: 4 mg Insulin Human Regular (Novolin R) 0 unit SC [facility] PRN Reason: Protocol Last Admin: 11/03/17 16:50 Dose: 6 unit Pantoprazole Sodium (Protonix Ec Tab) 40 mg PO DAILY [facility] Last Admin: 11/03/17 10:50 Dose: 40 mg - Labs Labs: 11/02/17 11:34 11/02/17 11:34 PT 11.2 SECONDS (9.7-12.2) 10/31/17 18:24 INR 1.0 10/31/17 18:24 APTT 32 SECONDS (21-34) 10/31/17 18:24 - Constitutional Appears: Well - Head Exam Head Exam: ATRAUMATIC, NORMAL INSPECTION, NORMOCEPHALIC - Eye Exam Eye Exam: EOMI, Normal appearance, PERRL Pupil Exam: NORMAL ACCOMODATION, PERRL - ENT Exam ENT Exam: Mucous Membranes Moist, Normal Exam - Neck Exam Neck Exam: Full ROM, Normal Inspection. absent: Lymphadenopathy - Respiratory Exam Respiratory Exam: Decreased Breath Sounds - Cardiovascular Exam Cardiovascular Exam: REGULAR RHYTHM, +S1, +S2 - GI/Abdominal Exam GI & Abdominal Exam: Soft, Diminished Bowel Sounds - Rectal Exam Rectal Exam: Deferred
[2017-11-04] MEDS: (Novolin R) Insulin Human Regular 100 units/ml vial SC SCH ×4 (07:55→21:50)
[2017-11-04 08:15] LABS: ALB/GLOB RATIO 1.3 (1.0-2.1); ALKALINE PHOSPHATASE 119 U/L (38-126); ALT/SGPT 39 U/L (9-52); AST/SGOT 25 U/L (14-36); BILIRUBIN,TOTAL 0.5 mg/dL (0.2-1.3); BLOOD UREA NITROGEN 22 mg/dL (7-17); CALCIUM 8.5 mg/dl (8.6-10.4); CARBON DIOXIDE 24 mmol/L (22-30); CHLORIDE 105 mmol/L (98-107); GFR AFRICAN-AMERICAN > 60; GLUCOSE,RANDOM 239 mg/dL (65-105); POTASSIUM 4.6 mmol/L (3.6-5.2); SODIUM 139 mmol/L (132-148); TOTAL PROTEIN 6.1 g/dL (6.3-8.3)
[2017-11-04 08:25] LABS: BASO % 0.4 % (0.0-2.0); EOS # 0.1 K/uL (0.0-0.7); EOS % 1.9 % (0.0-4.0); HEMATOCRIT 29.7 % (34.0-47.0); LYMPH # 1.3 K/uL (1.0-4.3); LYMPH % 18.8 % (20.0-40.0); MEAN CELL VOLUME 93.8 fL (81.0-99.0); MEAN CORPUSCULAR HEMOGLOBIN 32.4 pg (27.0-31.0); MEAN CORPUSCULAR HGB CONC 34.5 g/dL (33.0-37.0); MEAN PLATELET VOLUME 7.7 fL (7.2-11.7); MONO # 0.5 K/uL (0.0-0.8); MONO % 7.4 % (0.0-10.0); NRBC % 0.1 % (0.0-2.0); RED CELL DISTRIBUTION WIDTH 13.6 % (11.5-14.5); WHITE BLOOD COUNT 6.9 K/uL (4.8-10.8)
[2017-11-04] MEDS: Pantoprazole 40 mg EC Tab PO SCH (09:52)
[2017-11-04] MEDS: Enoxaparin 40 mg Syringe SC SCH (09:54)
--- NOTE | 2017-11-04 10:41 | CP.PCM.PN ---
Subjective - Date & Time of Evaluation Date of Evaluation: 11/04/17 Time of Evaluation: 10:38 - Subjective Subjective: PGY-[address] Verdugo's service Patient seen and examined at bedside. No acute events overnight per nursing. Nursing reports BM overnight for first time in 5 days. Patient reports multiple falls and near syncopal events over past 6-8 weeks. She states she has "been getting around with her cane okay" so far while in the hospital. She is for Lexiscan stress test this AM. She denies chest pain, palpitations, headache, dizziness. Objective - Vital Signs/Intake and Output Vital Signs (last 24 hours): Temp Pulse Resp BP Pulse Ox 98.3 F 90 18 109/70 97 11/04/17 08:00 11/04/17 08:00 11/04/17 08:00 11/04/17 08:00 11/04/17 08:00 Intake and Output: 11/04/17 11/04/17 06:59 18:59 Intake Total 120 Balance 120 - Medications Medications: Current Medications Aspirin (Ecotrin) 81 mg PO DAILY [facility] Last Admin: 11/04/17 09:53 Dose: 81 mg Enoxaparin Sodium (Lovenox) 40 mg SC DAILY [facility] Last Admin: 11/04/17 09:54 Dose: 40 mg Gabapentin (Neurontin) 100 mg PO TID [facility] Last Admin: 11/04/17 09:53 Dose: 100 mg Glimepiride (Amaryl) 4 mg PO DAILY [facility] Last Admin: 11/04/17 09:54 Dose: 4 mg Insulin Human Regular (Novolin R) 0 unit SC [facility] PRN Reason: Protocol Last Admin: 11/04/17 07:55 Dose: 1 unit Pantoprazole Sodium (Protonix Ec Tab) 40 mg PO DAILY [facility] Last Admin: 11/04/17 09:52 Dose: 40 mg - Labs Labs: 11/04/17 07:10 11/04/17 07:10 PT 11.2 SECONDS (9.7-12.2) 10/31/17 18:24 INR 1.0 10/31/17 18:24 APTT 32 SECONDS (21-34) 10/31/17 18:24 - Constitutional Appears: Non-toxic, No Acute Distress - Head Exam Head Exam: ATRAUMATIC, NORMAL INSPECTION, NORMOCEPHALIC - Eye Exam Eye Exam: EOMI, PERRL. absent: Scleral icterus - ENT Exam ENT Exam: Mucous Membranes Moist - Neck Exam Neck Exam: Full ROM - Respiratory Exam Respiratory Exam: Clear to Ausculation Bilateral, NORMAL BREATHING PATTERN. absent: Rales, Rhonchi, Wheezes - Cardiovascular Exam Cardiovascular Exam: REGULAR RHYTHM, +S1, +S2 - GI/Abdominal Exam GI & Abdominal Exam: Soft, Normal Bowel Sounds. absent: Tenderness Additional comments: healing ecchymosis on right thigh - Extremities Exam Extremities Exam: Normal Inspection - Back Exam Back Exam: absent: CVA tenderness (L), CVA tenderness (R) - Neurological Exam Neurological Exam: Alert, Awake, Normal Gait - Psychiatric Exam Psychiatric exam: Normal Affect, Normal Mood - Skin Skin Exam: Normal Color, Warm Assessment and Plan - Assessment and Plan (Free Text) Plan: Recurrent Falls Consult Cardio-Dr. Vázquez/Мария Consult Neuro- Dr. Hayes- recommends conservative management for now Echo- 11/01/17- LV function normal, EF 60-65%. Diastolic dysfunction. CT head- 10/31/17- No intracranial hemorrhage, nonspecific white matter changes. Chronic lacunar infarct within left basal ganglia CT Head- 11/01/17- Age related neuro degenerative changes are identified without acute intracranial findings as discussed above. Chronic lacunes left basal ganglia and likely left thalamus. CT Lumbar spine- Multilevel spinal stenosis , worst at L4-L5 where severe central stenosis results from disc osteophyte changes combined with gross facet arthropathy. Minimal Grade 1 degenerative spondylolitheses T12-L1 and L1-2 Carotid Dopplers- negative Tilt table test: Appropriate BP/HR response, pt experienced atypical chest pain during the test - Lexiscan stress test this AM - f/u results Diabetes BG remain elevated (mid 200s to lower 300s) Continue Glimepiride 4mg PO Daily increased ISS to high, will consider long acting insulin or AC insulin if BG remains elevated ASA 81mg PO Daily Prophylactic Measures Lovenox 40mg SC Daily Protonix 40mg PO Daily Disposition: Pt clear for discharge provided pt had Lexiscan stress test. Dr. Hsieh note states test was to be this AM, but no order entered. Physical therapy recommends JOSEFINA will double check with case management. Aries Zamora PGY-2 All medical management per Dr. Verdugo
--- NOTE | 2017-11-04 19:40 | CP.PCM.PN ---
Subjective - Date & Time of Evaluation Date of Evaluation: 11/04/17 Time of Evaluation: 12:00 - Subjective Subjective: clinically same Objective - Vital Signs/Intake and Output Vital Signs (last 24 hours): Temp Pulse Resp BP Pulse Ox 98.7 F 100 H 19 116/74 116 H 11/04/17 10:38 11/04/17 15:52 11/04/17 10:38 11/04/17 10:38 11/04/17 10:38 Intake and Output: 11/04/17 11/05/17 18:59 06:59 Intake Total 300 Balance 300 - Medications Medications: Current Medications Aspirin (Ecotrin) 81 mg PO DAILY [facility] Last Admin: 11/04/17 09:53 Dose: 81 mg Enoxaparin Sodium (Lovenox) 40 mg SC DAILY [facility] Last Admin: 11/04/17 09:54 Dose: 40 mg Gabapentin (Neurontin) 100 mg PO TID [facility] Last Admin: 11/04/17 17:31 Dose: 100 mg Glimepiride (Amaryl) 4 mg PO DAILY [facility] Last Admin: 11/04/17 09:54 Dose: 4 mg Insulin Human Regular (Novolin R) 0 unit SC [facility] PRN Reason: Protocol Last Admin: 11/04/17 17:31 Dose: 4 unit Pantoprazole Sodium (Protonix Ec Tab) 40 mg PO DAILY [facility] Last Admin: 11/04/17 09:52 Dose: 40 mg - Labs Labs: 11/04/17 07:10 11/04/17 07:10 PT 11.2 SECONDS (9.7-12.2) 10/31/17 18:24 INR 1.0 10/31/17 18:24 APTT 32 SECONDS (21-34) 10/31/17 18:24 - Constitutional Appears: Well - Head Exam Head Exam: ATRAUMATIC, NORMAL INSPECTION, NORMOCEPHALIC - Eye Exam Eye Exam: EOMI, Normal appearance, PERRL Pupil Exam: NORMAL ACCOMODATION, PERRL - ENT Exam ENT Exam: Mucous Membranes Moist, Normal Exam - Neck Exam Neck Exam: Full ROM, Normal Inspection. absent: Lymphadenopathy - Respiratory Exam Respiratory Exam: Decreased Breath Sounds - Cardiovascular Exam Cardiovascular Exam: REGULAR RHYTHM, +S1, +S2 - GI/Abdominal Exam GI & Abdominal Exam: Soft, Diminished Bowel Sounds - Rectal Exam Rectal Exam: Deferred
--- NOTE | 2017-11-05 00:18 | CP.PCM.PN ---
Subjective - Date & Time of Evaluation Date of Evaluation: 11/04/17 Time of Evaluation: 14:25 - Subjective Subjective: Patient seen and evaluated stable and feels better Review Of Systems Constitutional: Negative for: Fever, Chills Cardiovascular: Negative for: Chest Pain, Palpitations Respiratory: Negative for: Cough, Shortness of Breath Gastrointestinal: Negative for: Nausea, Vomiting, Abdominal Pain Skin: Negative for: Rash Neurological: Positive for: Dizziness. Negative for: Weakness, Numbness Physical Exam - Physical Exam Appears: Non-toxic, No Acute Distress Skin: Normal Color, Warm, Dry Head: Atraumatic, Normacephalic Eye(s): bilateral: Normal Inspection Ear(s): Bilateral: Normal Nose: No Discharge, No Deformity Oral Mucosa: Moist Neck: Normal ROM, Supple Chest: Symmetrical Cardiovascular: Rhythm Regular, No Murmur Respiratory: Normal Breath Sounds, No Rales, No Rhonchi, No Wheezing Gastrointestinal/Abdominal: Soft, No Tenderness, No Guarding, No Rebound Back: No CVA Tenderness Extremity: Normal ROM, No Pedal Edema, No Deformity, No Swelling Neurological/Psych: Oriented x3, Normal Speech, Normal Cognition Gait: Steady Objective - Vital Signs/Intake and Output Vital Signs (last 24 hours): Temp Pulse Resp BP Pulse Ox 98.7 F 100 H 19 116/74 116 H 11/04/17 10:38 11/04/17 15:52 11/04/17 10:38 11/04/17 10:38 11/04/17 10:38 Intake and Output: 11/04/17 11/05/17 18:59 06:59 Intake Total 300 Balance 300 - Medications Medications: Current Medications Aspirin (Ecotrin) 81 mg PO DAILY [facility] Last Admin: 11/04/17 09:53 Dose: 81 mg Enoxaparin Sodium (Lovenox) 40 mg SC DAILY [facility] Last Admin: 11/04/17 09:54 Dose: 40 mg Gabapentin (Neurontin) 100 mg PO TID [facility] Last Admin: 11/04/17 17:31 Dose: 100 mg Glimepiride (Amaryl) 4 mg PO DAILY [facility] Last Admin: 11/04/17 09:54 Dose: 4 mg Insulin Human Regular (Novolin R) 0 unit SC [facility] PRN Reason: Protocol Last Admin: 11/04/17 21:50 Dose: Not Given Pantoprazole Sodium (Protonix Ec Tab) 40 mg PO DAILY [facility] Last Admin: 11/04/17 09:52 Dose: 40 mg - Labs Labs: 11/04/17 07:10 11/04/17 07:10 PT 11.2 SECONDS (9.7-12.2) 10/31/17 18:24 INR 1.0 10/31/17 18:24 APTT 32 SECONDS (21-34) 10/31/17 18:24 Assessment and Plan - Assessment and Plan (Free Text) Assessment: (1) Falls Current Visit: Yes Status: Acute Comment: SURJIT x 2 negative ECHO/carotids and Tilt table test: Negative Medical management (2) CAD (coronary artery disease) Current Visit: Yes Status: Acute H/O Multi vessel PCI Brilinta 90 bid B Hiram and LESTER on board s/p Multi vessel PCI (3) Pacemaker Current Visit: Yes Status: Acute Comment: palced in 2012 - last checked 07/2015 (4) HTN (hypertension) Current Visit: Yes Status: Acute Comment: Resume home medications: Enalapril 5mg po daily Carvedilol 3.125mg po bid (5) Diabetes Current Visit: Yes Status: Acute Comment: Glimepride 4mg po daily RISS with accuchecks Consistent Carb diet (6) Chronic anemia Current Visit: Yes Status: Acute Comment: Resume Iron supplement no active signs of bleeding, pt hemodynamically stable on admission (7) Prophylactic measure Current Visit: Yes Status: Acute Comment: GI: Pepcid 20mg po bid DVT: Heparin 5000u sc q8, SCDs
[2017-11-05 06:41] LABS: BASO % 0.6 % (0.0-2.0); EOS # 0.2 K/uL (0.0-0.7); HEMATOCRIT 28.8 % (34.0-47.0); LYMPH # 1.5 K/uL (1.0-4.3); LYMPH % 28.9 % (20.0-40.0); MEAN CELL VOLUME 95.7 fL (81.0-99.0); MEAN CORPUSCULAR HEMOGLOBIN 33.5 pg (27.0-31.0); MEAN PLATELET VOLUME 7.8 fL (7.2-11.7); MONO # 0.5 K/uL (0.0-0.8); MONO % 9.1 % (0.0-10.0); RED CELL DISTRIBUTION WIDTH 13.7 % (11.5-14.5); WHITE BLOOD COUNT 5.1 K/uL (4.8-10.8)
[2017-11-05 06:54] LABS: ALB/GLOB RATIO 0.9 (1.0-2.1); BILIRUBIN,TOTAL 0.4 mg/dL (0.2-1.3); CALCIUM 8.5 mg/dl (8.6-10.4); POTASSIUM 4.2 mmol/L (3.6-5.2); TOTAL PROTEIN 7.2 g/dL (6.3-8.3)
[2017-11-05] MEDS ORDERED: Dextrose 50% SYRINGE Inj (50 ml) IV PRN (06:54)
[2017-11-05] MEDS ORDERED: Glucagon Recombinant 1 mg Inj IM PRN (06:54)
--- NOTE | 2017-11-05 06:56 | CP.PCM.PN ---
Subjective - Date & Time of Evaluation Date of Evaluation: 11/05/17 Time of Evaluation: 12:38 - Subjective Subjective: PGY2 Medicine Note for Dr. Cristina Verdugo; all management as per Dr. Cristina Verdugo Patient seen and examined at bedside this AM; denies any acute complaints; states she had a lexiscan 2 weeks ago that was normal as per Dr. Vázquez; patient is for another stress test this AM which results are still pending; patient denies any current symptoms and states she Objective - Vital Signs/Intake and Output Vital Signs (last 24 hours): Temp Pulse Resp BP Pulse Ox 98.1 F 93 H 20 114/71 96 11/04/17 23:00 11/05/17 05:14 11/04/17 23:00 11/04/17 23:00 11/04/17 23:00 Intake and Output: 11/04/17 11/05/17 18:59 06:59 Intake Total 300 0 Balance 300 0 - Medications Medications: Current Medications Aspirin (Ecotrin) 81 mg PO DAILY [facility] Last Admin: 11/04/17 09:53 Dose: 81 mg Enoxaparin Sodium (Lovenox) 40 mg SC DAILY [facility] Last Admin: 11/04/17 09:54 Dose: 40 mg Gabapentin (Neurontin) 100 mg PO TID [facility] Last Admin: 11/04/17 17:31 Dose: 100 mg Glimepiride (Amaryl) 4 mg PO DAILY [facility] Last Admin: 11/04/17 09:54 Dose: 4 mg Insulin Human Regular (Novolin R) 0 unit SC [facility] PRN Reason: Protocol Last Admin: 11/04/17 21:50 Dose: Not Given Pantoprazole Sodium (Protonix Ec Tab) 40 mg PO DAILY [facility] Last Admin: 11/04/17 09:52 Dose: 40 mg - Labs Labs: 11/05/17 06:16 11/04/17 07:10 PT 11.2 SECONDS (9.7-12.2) 10/31/17 18:24 INR 1.0 10/31/17 18:24 APTT 32 SECONDS (21-34) 10/31/17 18:24 - Constitutional Appears: Well - Head Exam Head Exam: ATRAUMATIC - Eye Exam Eye Exam: EOMI - ENT Exam ENT Exam: Mucous Membranes Moist - Neck Exam Neck Exam: Full ROM - Cardiovascular Exam Cardiovascular Exam: REGULAR RHYTHM - GI/Abdominal Exam GI & Abdominal Exam: Soft, Normal Bowel Sounds - Extremities Exam Extremities Exam: Calf Tenderness. absent: Full ROM - Back Exam Back Exam: absent: CVA tenderness (L), CVA tenderness (R) - Neurological Exam Neurological Exam: Alert, Awake - Skin Skin Exam: Warm Assessment and Plan - Assessment and Plan (Free Text) Assessment: Recurrent Falls Consult Cardio-Dr. Vázquez/Мария Consult Neuro- Dr. Hayes- recommends conservative management for now Echo- 11/01/17- LV function normal, EF 60-65%. Diastolic dysfunction. CT head- 10/31/17- No intracranial hemorrhage, nonspecific white matter changes. Chronic lacunar infarct within left basal ganglia CT Head- 11/01/17- Age related neuro degenerative changes are identified without acute intracranial findings as discussed above. Chronic lacunes left basal ganglia and likely left thalamus. CT Lumbar spine- Multilevel spinal stenosis , worst at L4-L5 where severe central stenosis results from disc osteophyte changes combined with gross facet arthropathy. Minimal Grade 1 degenerative spondylolitheses T12-L1 and L1-2 Carotid Dopplers- negative Tilt table test: Appropriate BP/HR response, pt experienced atypical chest pain during the test - Lexiscan stress test this AM - f/u results Diabetes;uncontrolled BG remain elevated (mid 200s to lower 300s) Continue Glimepiride 4mg PO Daily increased ISS to high, will consider long acting insulin or AC insulin if BG remains elevated ASA 81mg PO Daily Prophylactic Measures Lovenox 40mg SC Daily Protonix 40mg PO Daily Disposition: Pt clear for discharge provided pt had Lexiscan stress test. Dr. Hsieh note states test was to be this AM Physical therapy recommends [facility] All medical management per Dr. Verdugo
[2017-11-05] MEDS: (Novolin R) Insulin Human Regular 100 units/ml vial SC SCH ×4 (08:07→21:30)
[2017-11-05] MEDS ORDERED: Aminophylline 25 mg/ml Inj ONE (11:18)
[2017-11-05] MEDS: Enoxaparin 40 mg Syringe SC SCH (14:10)
[2017-11-05] MEDS: Pantoprazole 40 mg EC Tab PO SCH (14:10)
--- NOTE | 2017-11-05 18:30 | CP.PCM.PN ---
Subjective - Date & Time of Evaluation Date of Evaluation: 11/05/17 Time of Evaluation: 13:00 - Subjective Subjective: clinically same Objective - Vital Signs/Intake and Output Vital Signs (last 24 hours): Temp Pulse Resp BP Pulse Ox 97.5 F L 98 H 18 114/73 96 11/05/17 16:23 11/05/17 16:23 11/05/17 16:23 11/05/17 16:23 11/05/17 16:23 Intake and Output: 11/05/17 11/05/17 06:59 18:59 Intake Total 0 200 Balance 0 200 - Medications Medications: Current Medications Aspirin (Ecotrin) 81 mg PO DAILY [facility] Last Admin: 11/05/17 14:09 Dose: 81 mg Dextrose (Dextrose 50% Inj) 0 ml IV STAT PRN; Protocol PRN Reason: Hypoglycemia Protocol Dextrose (Glutose 15) 15 gm PO ONCE PRN; Protocol PRN Reason: Hypoglycemia Protocol Enoxaparin Sodium (Lovenox) 40 mg SC DAILY [facility] Last Admin: 11/05/17 14:10 Dose: 40 mg Gabapentin (Neurontin) 100 mg PO TID [facility] Last Admin: 11/05/17 18:03 Dose: 100 mg Glimepiride (Amaryl) 4 mg PO DAILY [facility] Last Admin: 11/05/17 14:10 Dose: 4 mg Glucagon (Glucagen Diagnostic Kit) 1 mg IM STAT PRN; Protocol PRN Reason: Hypoglycemia Protocol Dextrose (Dextrose 5% In Water 1000 Ml) 1,000 mls @ 0 mls/hr IV .Q0M PRN; Protocol; Per Protocol PRN Reason: Hypoglycemia Protocol Insulin Human Regular (Novolin R) 0 unit SC [facility] PRN Reason: Protocol Last Admin: 11/05/17 18:03 Dose: 10 unit Pantoprazole Sodium (Protonix Ec Tab) 40 mg PO DAILY [facility] Last Admin: 11/05/17 14:10 Dose: 40 mg - Labs Labs: 11/05/17 06:16 11/05/17 06:16 PT 11.2 SECONDS (9.7-12.2) 10/31/17 18:24 INR 1.0 10/31/17 18:24 APTT 32 SECONDS (21-34) 10/31/17 18:24 - Constitutional Appears: Well - Head Exam Head Exam: ATRAUMATIC, NORMAL INSPECTION, NORMOCEPHALIC - Eye Exam Eye Exam: EOMI, Normal appearance, PERRL Pupil Exam: NORMAL ACCOMODATION, PERRL - ENT Exam ENT Exam: Mucous Membranes Moist, Normal Exam - Neck Exam Neck Exam: Full ROM, Normal Inspection. absent: Lymphadenopathy - Respiratory Exam Respiratory Exam: Decreased Breath Sounds - Cardiovascular Exam Cardiovascular Exam: REGULAR RHYTHM, +S1, +S2 - GI/Abdominal Exam GI & Abdominal Exam: Soft, Diminished Bowel Sounds - Rectal Exam Rectal Exam: Deferred
[2017-11-06 06:27] LABS: BASO % 0.6 % (0.0-2.0); EOS # 0.2 K/uL (0.0-0.7); HEMATOCRIT 30.5 % (34.0-47.0); LYMPH # 1.6 K/uL (1.0-4.3); LYMPH % 31.2 % (20.0-40.0); MEAN CELL VOLUME 95.4 fL (81.0-99.0); MEAN CORPUSCULAR HGB CONC 34.6 g/dL (33.0-37.0); MEAN PLATELET VOLUME 7.6 fL (7.2-11.7); MONO # 0.5 K/uL (0.0-0.8); MONO % 10.2 % (0.0-10.0); RED CELL DISTRIBUTION WIDTH 13.5 % (11.5-14.5)
[2017-11-06 07:41] LABS: ALB/GLOB RATIO 1.2 (1.0-2.1); ALKALINE PHOSPHATASE 119 U/L (38-126); ALT/SGPT 62 U/L (9-52); AST/SGOT 43 U/L (14-36); BILIRUBIN,TOTAL 0.6 mg/dL (0.2-1.3); BLOOD UREA NITROGEN 22 mg/dL (7-17); CALCIUM 8.5 mg/dl (8.6-10.4); CARBON DIOXIDE 26 mmol/L (22-30); CHLORIDE 107 mmol/L (98-107); GFR AFRICAN-AMERICAN > 60; GLUCOSE,RANDOM 141 mg/dL (65-105); POTASSIUM 4.3 mmol/L (3.6-5.2); SODIUM 141 mmol/L (132-148); TOTAL PROTEIN 6.5 g/dL (6.3-8.3)
[2017-11-06] MEDS: (Novolin R) Insulin Human Regular 100 units/ml vial SC SCH ×3 (08:20→17:11)
[2017-11-06] MEDS: Enoxaparin 40 mg Syringe SC SCH (09:09)
[2017-11-06] MEDS: Pantoprazole 40 mg EC Tab PO SCH (09:10)
--- NOTE | 2017-11-06 09:17 | CP.PCM.PN ---
Subjective - Date & Time of Evaluation Date of Evaluation: 11/06/17 Time of Evaluation: 09:16 - Subjective Subjective: PGY2 Medicine Note for Dr. Verdugo's service: Patient seen and examined at bedside. She denies any acute complaints, only asking when she will be going home. She reports eating, and voiding without difficulty. She denies fever, chills, lightheadedness, dizziness, chest pain, or palpitations. Objective - Vital Signs/Intake and Output Vital Signs (last 24 hours): Temp Pulse Resp BP Pulse Ox 98 F 88 18 111/71 96 11/06/17 08:01 11/06/17 08:01 11/06/17 08:01 11/06/17 08:01 11/06/17 08:01 Intake and Output: 11/06/17 11/06/17 06:59 18:59 Intake Total 440 Balance 440 - Medications Medications: Current Medications Aspirin (Ecotrin) 81 mg PO DAILY [facility] Last Admin: 11/06/17 09:10 Dose: 81 mg Dextrose (Dextrose 50% Inj) 0 ml IV STAT PRN; Protocol PRN Reason: Hypoglycemia Protocol Dextrose (Glutose 15) 15 gm PO ONCE PRN; Protocol PRN Reason: Hypoglycemia Protocol Enoxaparin Sodium (Lovenox) 40 mg SC DAILY [facility] Last Admin: 11/06/17 09:09 Dose: 40 mg Gabapentin (Neurontin) 100 mg PO TID [facility] Last Admin: 11/06/17 09:10 Dose: 100 mg Glimepiride (Amaryl) 4 mg PO DAILY [facility] Last Admin: 11/06/17 09:10 Dose: 4 mg Glucagon (Glucagen Diagnostic Kit) 1 mg IM STAT PRN; Protocol PRN Reason: Hypoglycemia Protocol Dextrose (Dextrose 5% In Water 1000 Ml) 1,000 mls @ 0 mls/hr IV .Q0M PRN; Protocol; Per Protocol PRN Reason: Hypoglycemia Protocol Insulin Human Regular (Novolin R) 0 unit SC [facility] PRN Reason: Protocol Last Admin: 11/06/17 08:20 Dose: 2 unit Pantoprazole Sodium (Protonix Ec Tab) 40 mg PO DAILY [facility] Last Admin: 11/06/17 09:10 Dose: 40 mg - Labs Labs: 11/06/17 06:16 11/06/17 06:16 PT 11.2 SECONDS (9.7-12.2) 10/31/17 18:24 INR 1.0 10/31/17 18:24 APTT 32 SECONDS (21-34) 10/31/17 18:24 - Constitutional Appears: Non-toxic, No Acute Distress - Head Exam Head Exam: ATRAUMATIC, NORMOCEPHALIC - Eye Exam Eye Exam: EOMI. absent: Scleral icterus Pupil Exam: PERRL - ENT Exam ENT Exam: Mucous Membranes Moist - Respiratory Exam Respiratory Exam: Clear to Ausculation Bilateral, NORMAL BREATHING PATTERN. absent: Rales, Rhonchi, Wheezes - Cardiovascular Exam Cardiovascular Exam: REGULAR RHYTHM, +S1, +S2. absent: JVD, Murmur - GI/Abdominal Exam GI & Abdominal Exam: Soft, Normal Bowel Sounds. absent: Tenderness - Extremities Exam Extremities Exam: Normal Inspection. absent: Tenderness - Back Exam Back Exam: absent: CVA tenderness (L), CVA tenderness (R) - Neurological Exam Neurological Exam: Alert, Awake, Oriented x3 - Psychiatric Exam Psychiatric exam: Normal Affect - Skin Skin Exam: Normal Color, Warm Assessment and Plan - Assessment and Plan (Free Text) Plan: Recurrent Falls Consult Cardio-Dr. Vázquez/Мария Consult Neuro- Dr. Hayes- recommends conservative management for now Echo- 11/01/17- LV function normal, EF 60-65%. Diastolic dysfunction. CT head- 10/31/17- No intracranial hemorrhage, nonspecific white matter changes. Chronic lacunar infarct within left basal ganglia CT Head- 11/01/17- Age related neuro degenerative changes are identified without acute intracranial findings as discussed above. Chronic lacunes left basal ganglia and likely left thalamus. CT Lumbar spine- Multilevel spinal stenosis , worst at L4-L5 where severe central stenosis results from disc osteophyte changes combined with gross facet arthropathy. Minimal Grade 1 degenerative spondylolitheses T12-L1 and L1-2 Carotid Dopplers- negative Tilt table test: Appropriate BP/HR response, pt experienced atypical chest pain during the test - recommend Lexiscan test Lexiscan test: Per Dr. Vázquez, normal stress test Diabetes;uncontrolled A1C: 9.6 BG remain elevated (mid 200s to lower 300s) Accuchecks Hypoglycemia protocol Continue Glimepiride 4mg PO Daily Start Januvia 25mg PO Daily Start Lisinopril 2.5 mg PO Daily ASA 81mg PO Daily f/u lipid panel Transaminitis Mildly elevated AST/ALT Monitor Prophylactic Measures Lovenox 40mg SC Daily Protonix 40mg PO Daily [facility] Disposition: Spoke with Dr. Vázquez, pt clear for discharge to [facility]. She should follow up with Dr. Vázquez at the office within one month. Physical therapy recommends [facility] Zamora PGY-2 All medical management per Dr. Verdugo
[2017-11-06 09:57] LABS: CHOLESTEROL 192 mg/dL (0-199)
--- NOTE | 2017-11-06 15:18 | CARD ---
APPROVED REPORT Protocol: PHARMACOLOGICAL STRESS Test Type: LEXISCAN Test Indications: NEAR SYNCOPE Medications: LIST SCAN Medical History: NEAR SYNCOPE Target HR: 146 bpm Resting ECG: PACED RHYTHM Resting Heart Rate: 95 bpm Resting Blood Pressure: 120/60mmHg submaximum (85%): 124 bpm TEST SUMMARY [id number]:460.00..095/.2. PREINFSNHYPERV.36:[id number]/60.0. INFUSIONDOSE 100:300.00.01.096/.0. [id number]:110.00..[id number]/68.1. PROCEDURE Pharmacologic stress testing was performed using 0.4mg per 5ml of regadenoson given intravenously over 7-10 seconds. Reversal agent aminophyline 125 mg, given intravenously for Dizziness. POST EXERCISE Reason for Termination: Protocol Completed Target HR: No Max HR: 96 bpm 79% of Maximum Predicted HR: 146 bpm Exercise duration: 00:30 min:sec, 0 Stage Exercise capacity: 1.0METs Max Blood Pressure: 130/70mmHg Blood Pressure response to exercise: normal resting BP - appropriate response Heart Rate response to exercise: appropriate Chest Pain: No, none Angina index: 0 Arrhythmia: No, none ST Change: No, none Deviation: 0 mm INTERPRETATION Stress EKG Conclusion: AWAIT NUCLEAR IMAGES EXAM: Myocardial Perfusion REST/STRESS Imaging Protocol The imaging protocol used to acquire images was Rest Tc-99m/stress Tc-99m 1 day Rest Spect myocardial perfusion imaging was performed in supine position 41 minutes following the injection of 12.2 mCi of Tc-99 Myoview. Gated Stress Spect was performed 40 minutes after intravenous 31.2 mCi Tc-99 Myoview injection. The images were gated to evaluate regional wall motion and calculate ventricular ejection fraction.Images were reconstructed using backfilter projection method in short horizontal and verticle long axis. Spect slices were generated. RESTING DATA EDV47.56uoSH5.00L/min1/3 Pk. Filling Rate1.41EDV/sec LV Time to Pk. Filling Jxbq961.23msec ESV5.00mlMyocardial Mass93.00gLV Time to Pk. Ejection Zsvn490.02msec Pk. Fill Rate6.30EDV/secAv. Heart Rate96.00bpm EF89.00%Pk. Emptying Rate5.96ESV/sec STRESS DATA EDV46.82xhTG3.50L/min ESV10.00mlMyocardial Mass95.00g Pk. Fill Rate5.59EDV/sec EF78.00%Pk. Emptying Rate5.96ESV/sec 1/3 Pk. Filling Rate0.94EDV/secRegional WT score at stress:1.00 LV Time to Pk. Filling Rate:146.02msecRegional WM score at stress:0.00 LV Time to Pk. Ejection Rate:153.03msecSummed WT score at stress:31.00 Av. Heart Rate99.00bpmSummed WM score at stress:10.00 LV Perf. Quant 17 Seg. SSS4.00 17 Seg. SRS1.00 17 Seg. SDS3.00 Stress Defect Extent (% LAD)14.40Rest Defect Extent (% LAD)0.00Rev. Defect Extent (% LAD)14.40 Stress Defect Extent (% LCX)11.30Rest Defect Extent (% LCX)11.30Rev. Defect Extent (% LCX)6.30 Stress Defect Extent (% RCA)0.00Rest Defect Extent (% RCA)0.00Rev. Defect Extent (% RCA)0.00 Stress Defect Extent (% PONCE)7.80Rest Defect Extent (% PONCE)2.40Rev. Defect Extent (% PONCE)7.00 Other Information Quality:Good IMPRESSION Normal Myocardial Perfusion exercise stress study Global LV Function: Normal Stress Test Summary: Nondiagnostic LV Perfusion Summary: Normal Left Ventricle LV Size/Shape: The left ventricle is normal size. LV Thickness: There is normal left ventricular wall thickness. LV Function:Left ventricle systolic function is normal. The Ejection Fraction is >55%. Conclusion 1. The stress and resting images show normal perfusion. 2. Normal left ventricular function.
[2017-11-06 17:00] VITALS: BP 97/61; PULSE 92; RESP 20; TEMP 97.6; O2SAT 100
--- NOTE | 2017-11-07 16:46 | CP.PCM.PN ---
Subjective - Date & Time of Evaluation Date of Evaluation: 11/02/17 Time of Evaluation: 09:15 - Subjective Subjective: Patient seen and evaluated Comfortable No more dizziness Denies chest pain and dyspnea Review Of Systems Constitutional: Negative for: Fever, Chills Cardiovascular: Negative for: Chest Pain, Palpitations Respiratory: Negative for: Cough, Shortness of Breath Gastrointestinal: Negative for: Nausea, Vomiting, Abdominal Pain Skin: Negative for: Rash Neurological: Positive for: Dizziness. Negative for: Weakness, Numbness Physical Exam - Physical Exam Appears: Non-toxic, No Acute Distress Skin: Normal Color, Warm, Dry Head: Atraumatic, Normacephalic Eye(s): bilateral: Normal Inspection Ear(s): Bilateral: Normal Nose: No Discharge, No Deformity Oral Mucosa: Moist Neck: Normal ROM, Supple Chest: Symmetrical Cardiovascular: Rhythm Regular, No Murmur Respiratory: Normal Breath Sounds, No Rales, No Rhonchi, No Wheezing Gastrointestinal/Abdominal: Soft, No Tenderness, No Guarding, No Rebound Back: No CVA Tenderness Extremity: Normal ROM, No Pedal Edema, No Deformity, No Swelling Neurological/Psych: Oriented x3, Normal Speech, Normal Cognition Gait: Steady Objective - Vital Signs/Intake and Output Vital Signs (last 24 hours): Temp Pulse Resp BP Pulse Ox 97.6 F 92 H 20 97/61 L 100 11/06/17 16:00 11/06/17 16:00 11/06/17 16:00 11/06/17 16:00 11/06/17 16:00 - Labs Labs: 11/06/17 06:16 11/06/17 06:16 PT 11.2 SECONDS (9.7-12.2) 10/31/17 18:24 INR 1.0 10/31/17 18:24 APTT 32 SECONDS (21-34) 10/31/17 18:24 Assessment and Plan - Assessment and Plan (Free Text) Assessment: (1) Falls Current Visit: Yes Status: Acute Comment: SURJIT x 2 negative Check ECHO/carotids and Tilt table test (2) CAD (coronary artery disease) Current Visit: Yes Status: Acute H/O Multi vessel PCI Brilinta 90 bid B Hiram and LESTER on board s/p Multi vessel PCI (3) Pacemaker Current Visit: Yes Status: Acute Comment: palced in 2012 - last checked 07/2015 (4) HTN (hypertension) Current Visit: Yes Status: Acute Comment: Resume home medications: Enalapril 5mg po daily Carvedilol 3.125mg po bid (5) Diabetes Current Visit: Yes Status: Acute Comment: Glimepride 4mg po daily RISS with accuchecks Consistent Carb diet (6) Chronic anemia Current Visit: Yes Status: Acute Comment: Resume Iron supplement no active signs of bleeding, pt hemodynamically stable on admission (7) Prophylactic measure Current Visit: Yes Status: Acute Comment: GI: Pepcid 20mg po bid DVT: Heparin 5000u sc q8, SCDs
--- NOTE | 2017-11-07 16:47 | CP.PCM.PN ---
Subjective - Date & Time of Evaluation Date of Evaluation: 11/03/17 Time of Evaluation: 07:00 - Subjective Subjective: Patient comfortable No cardiac complaints Review Of Systems Constitutional: Negative for: Fever, Chills Cardiovascular: Negative for: Chest Pain, Palpitations Respiratory: Negative for: Cough, Shortness of Breath Gastrointestinal: Negative for: Nausea, Vomiting, Abdominal Pain Skin: Negative for: Rash Neurological: Positive for: Dizziness. Negative for: Weakness, Numbness Physical Exam - Physical Exam Appears: Non-toxic, No Acute Distress Skin: Normal Color, Warm, Dry Head: Atraumatic, Normacephalic Eye(s): bilateral: Normal Inspection Ear(s): Bilateral: Normal Nose: No Discharge, No Deformity Oral Mucosa: Moist Neck: Normal ROM, Supple Chest: Symmetrical Cardiovascular: Rhythm Regular, No Murmur Respiratory: Normal Breath Sounds, No Rales, No Rhonchi, No Wheezing Gastrointestinal/Abdominal: Soft, No Tenderness, No Guarding, No Rebound Back: No CVA Tenderness Extremity: Normal ROM, No Pedal Edema, No Deformity, No Swelling Neurological/Psych: Oriented x3, Normal Speech, Normal Cognition Gait: Steady Objective - Vital Signs/Intake and Output Vital Signs (last 24 hours): Temp Pulse Resp BP Pulse Ox 97.6 F 92 H 20 97/61 L 100 11/06/17 16:00 11/06/17 16:00 11/06/17 16:00 11/06/17 16:00 11/06/17 16:00 - Labs Labs: 11/06/17 06:16 11/06/17 06:16 PT 11.2 SECONDS (9.7-12.2) 10/31/17 18:24 INR 1.0 10/31/17 18:24 APTT 32 SECONDS (21-34) 10/31/17 18:24 Assessment and Plan - Assessment and Plan (Free Text) Assessment: (1) Falls Current Visit: Yes Status: Acute Comment: SURJIT x 2 negative Check ECHO/carotids and Tilt table test (2) CAD (coronary artery disease) Current Visit: Yes Status: Acute H/O Multi vessel PCI Brilinta 90 bid B Hiram and LESTER on board s/p Multi vessel PCI (3) Pacemaker Current Visit: Yes Status: Acute Comment: palced in 2012 - last checked 07/2015 (4) HTN (hypertension) Current Visit: Yes Status: Acute Comment: Resume home medications: Enalapril 5mg po daily Carvedilol 3.125mg po bid (5) Diabetes Current Visit: Yes Status: Acute Comment: Glimepride 4mg po daily RISS with accuchecks Consistent Carb diet (6) Chronic anemia Current Visit: Yes Status: Acute Comment: Resume Iron supplement no active signs of bleeding, pt hemodynamically stable on admission (7) Prophylactic measure Current Visit: Yes Status: Acute Comment: GI: Pepcid 20mg po bid DVT: Heparin 5000u sc q8, SCDs
== END 2017-11-06 18:40 | DRG 552 ==
LOC: C.ER 16:54 → C.9E 20:17 → C.6T 21:37 → OBSVTOIN 11-02 14:16
PROVIDERS: ADMIT Internal Medicine Nephrology; ATTEND Internal Medicine Nephrology
PROC: 4A02XFZ Measurement of Cardiac Rhythm, External Approach (ICD-10-PCS; principal; 2017-11-03)
PROC: 4A03XB1 Measurement of Arterial Pressure, Peripheral, External Approach (ICD-10-PCS; 2017-11-03)
DX: M48.061 Spinal stenosis, lumbar region without neurogenic claudication (principal); E11.65 Type 2 diabetes mellitus with hyperglycemia; R55 Syncope and collapse; D64.9 Anemia, unspecified; I25.10 Atherosclerotic heart disease of native coronary artery without angina pectoris; I10 Essential (primary) hypertension; Z95.5 Presence of coronary angioplasty implant and graft; E78.00 Pure hypercholesterolemia, unspecified; M25.78 Osteophyte, vertebrae; R29.6 Repeated falls; M46.90 Unspecified inflammatory spondylopathy, site unspecified; Z79.4 Long term (current) use of insulin; Z79.82 Long term (current) use of aspirin; Z95.0 Presence of cardiac pacemaker